=== PATIENT | female | born 1960 | race Caucasian/White ===

== ENCOUNTER → 2021-04-12 | Outpatient (CLI) | payer OTHER ==
[~2021-04-12] MED LIST: FLAX1CAP5 PO; LATA0.0015; LISI20TA35; PROBCAP17 PO; TIMO0.5S29; VITA500C24 PO; VITMTA PO
== END ==
LOC: M LABSMTC 09:57
PROVIDERS: ATTEND Anesthesiology
DX: Z01.812 Encounter for preprocedural laboratory examination (principal); Z20.822 Contact with and (suspected) exposure to COVID-19

== ENCOUNTER 2021-04-17 07:49 | Day surgery (SDC) | payer OTHER ==
[~2021-04-17] VITALS: Ht 152.4 cm; Wt 58.5 kg
[~2021-04-17 07:49] MED LIST changes: +NS 1,000 ML IV ONE
--- OUTSIDE RECORDS SUMMARY | 2021-04-17 07:53 | CCD ---
Author Author [facility] Organization [facility] Address Unknown Phone Unavailable Care Team Providers Care Double Cutter Name Role Phone Rosalva-Doris Mima Unavailable PROBLEMS Type Condition ICD9-CM Code DVD26-ZR Code Onset Dates Condition S tatus W/U Status Risk SNOMED Code Notes Problem Glaucoma, unspecified glaucoma type, unspecified lateralit y H40.9 Active confirmed 26896616 Problem Mixed hyperlipidemia E78.2 Active confirmed 483807577 Problem Essential hypertension I10 Active confirmed [id number] ALLERGIES Allergen (clinical drug ingredient) Drug/Non Drug Allergy do cumented on EMR Reaction Allergy Type Onset Date Status sulfamethoxazole / trimethoprim Bactrim([facility] Code:[address]-50) back pain Drug Allergy Active erythromycin Erythromycin(ND Code:[address]-25) Nausea/Vomiting D rug Allergy Active ENCOUNTERS from 1962 to 2021-02-06 Encounter Location Date Provider Diagnosis [address] [place] [address] Dec, Mima HoranTartell Mixed hyperlipidemia E78.2 IMMUNIZATIONS No Information SOCIAL HISTORY Tobacco Use: Social History Observation Description Date Details (start date - stop date) Never Smoker Sex Assigned At : Social History Observation Description Sex Assigned At Unknown Audit Question Answer Notes Total Score: 1 Interpretation: Alcohol Education Language: Question Answer Notes Languages spoken: Bulgarian Domestic Violence: Question Answer Notes Status: Sexual Hx: Question Answer Notes Had sex in the last 12 months (vaginal, oral, or anal)? Yes LMP: hyster Have you ever had an STD? No with Men only Use protection? No Drug and Alcohol Question Answer Notes Total Score: 0 Interpretation: No problems reported Alcohol Screening: Question Answer Notes Did you have a drink containing alcohol in the past year? Ye s Points 1 Interpretation Negative How often did you have six or more drinks on one occas ion in the past year? Never (0 points) How many drinks did you have on a typica l day when you were drinking in the past year? 1 or 2 (0 points) How often did you have a drink containing alcohol in t he past year? Monthly or less (1 point) Tobacco Use: Question Answer Notes Are you a: never smoker REASON FOR REFERRAL No Information VITAL SIGNS No information MEDICATIONS Medication SIG (Take, Route, Frequency, Duration) Notes Start Da te End Date Status Timolol Maleate 0.5 % 1 drop into affected eye Ophthalmic Once a day Active Lisinopril-hydroCHLOROthiazide 20-12.5 MG 1 tablet Ora lly Once a day for 90 days Active Latanoprost 0.005 % 1 drop into affected eye in the evening Ophthalmic Once a day Active Montelukast Sodium 10 MG 1 tablet as needed Orally Once a day Active PROCEDURES No Information RESULTS No Results REASON FOR VISIT blood lab MEDICAL (GENERAL) HISTORY Type Description Date Medical History essential hypertension Medical History glaucoma Medical History allergic rhinitis Medical History normal mammogram (10/2020) Surgical History tracheotomy for epiglottitis 1966 Surgical History 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 9 Surgical History tubal ligation 1994 Surgical History 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 Hospitalization History epiglottitis 1966 Hospitalization History knee surgery 1979 Hospitalization History delivery 1982 Hospitalization History delivery 1986 Hospitalization History delivery 1993 Hospitalization History hysterectomy and oophorectomy 2000 Goals Section No Information Health Concerns No Information MEDICAL EQUIPMENT No Information MENTAL STATUS No Information FUNCTIONAL STATUS No Information ASSESSMENTS Encounter Date Diagnosis Assessment Notes Treatment Notes Treatm ent Clinical Notes Dec, Mixed hyperlipidemia (ICD-10 - E78.2) PLAN OF TREATMENT Medication Medication Name Sig Start Date Stop Date Lisinopril-hydroCHLOROthiazide 20-12.5 MG 1 tablet Ora lly Once a day for 90 days Future Test Test Name Order Date LIPID PANEL (CARDIAC RISK) [id number] Next Appt Details Provider Name:Mima Roth, 2021-07-16 10:00:00 AM, [address] , , [place], [address], Insurance Providers Payer Name Payer Address Payer Phone Insured Name Patient Relati onship to Insured Coverage Start Date Coverage End Date [facility] [address] [place] [address] JAMIR ORDAZ self
--- OUTSIDE RECORDS SUMMARY | 2021-04-17 07:53 | CCD | Continuity of Care Document ---
Author Author Luis TRIANA Organization Unknown Address [address] [place] [address], [address] [place] [address] Phone [phone] Care Team Providers Care Cement Truck Driver Name Role Phone Mima Roth D.O. AUTM Problems Active Problems Provider Date Essential hypertension VERONIKA Gardner Onset: 01/23/2021 Social History Type Date Description Comments Sex Unknown ETOH Use Rarely consumes alcohol Tobacco Use Start: Unknown Denies Smoking Recreational Drug Use Denies Drug Use Allergies, Adverse Reactions, Alerts Active Allergies Criticality Reaction | Severity Comments Date Bactrim Unable to assess criticality Back Pain 01/23/2021 Erythromycin Unable to assess criticality Upset stomach 01/23/2021 Medications Active Medications SIG Qnty Indications Ordering Provide r Date Lisinopril-Hydrochlorothiazide 20-12.5mg Tablets one tab daily Unknown Latanoprost-Timolol Maleate 0.005-0.5% Solution once daily Unknown Vitamin C 1000mg Tablets 1 by mouth every day Unknown Flaxseed Oil 1200mg Capsules once daily Unknown Multivitamin Tablets 1 by mouth every day Unknown Probiotic Digestive Support Extra Streng th Capsules 1 by mouth every day Unknown 0 000 Immunizations Description No Information Available Vital Signs Date Vital Result Comment 01/23/2021 9:48am BP Systolic 158 mmHg BP Diastolic 86 mmHg Body Temperature 98.3 F Height 59.5 inches 4'11.50" Weight 135.00 lb BMI (Body Mass Index) 26.8 kg/m2 [place] Body Weight 100 lb Weight 61.236 kg BSA (Body Surface Area) 1.57 m2 Results Description No Information Available Procedures Description No Information Available Medical Devices Description No Information Available Encounters Description No Information Available Assessments Date Code Description Provider 01/23/2021 Z86.010 Personal history of colonic poly ps VERONIKA aGrdner 01/23/2021 Z12.11 Encounter for screening for leanna gnant neoplasm of colon VERONIKA Gardner Plan of Treatment No Information Available Functional Status Description No Information Available Mental Status Description No Information Available Referrals Refer to Dr Reason for Referral Status Appt Date Brandon Carmona M.D. COLONOSCOPY Scheduled 01/23/2021 [facility] [address] [place] [address] [phone]
--- OUTSIDE RECORDS SUMMARY | 2021-04-17 07:53 | CCD ---
Author Author [facility] Organization [facility] Address [address] [place], [place] [id number] Phone Care Team Providers Care Chef Teacher Name Role Phone DEREK REYES Unavailable [email or web address] Allergies, Adverse Reactions, Alerts Bactrim 06/11/2014 erythromycin 06/11/2014 Medications * Continue: * DEREK REYES RPA-C * lisinopriL 20 mg- hydrochlorothiazide 12.5 mg tablet , Take 1 tablet orally Every day 06/11/2014 * montelukast 10 mg tablet , Take 1 tablet orally Every day 02/16/2019 * Ventolin HFA 90 mcg/actuation aerosol inhaler , Take 2 hfa aerosol with adapter (gram) puff(s) 4 times a day prn 02/16/2019 * Discontinued: * CHAD BONILLA * Augmentin 875 mg-125 mg tablet 02/05/2016 * * albuterol sulfate HFA 90 mcg/actuation aerosol inhaler 03/30/2017 * Singulair 10 mg tablet 03/30/2017 * gabapentin 100 mg capsule 03/30/2017 * Valtrex 1 gram tablet 03/30/2017 * Pre-existing: * timoloL maleate 0.5 % eye drops , Take 1 EACH EYE drops ophthalmically Every day * Xalatan 0.005 % eye drops , Take 1 BOTH EYE drops ophthalmically Every day, EACH EYE Problems Addressed During This Encounter Hyperlipidemia, unspecified (E78.5) 07/18 Essential (primary) hypertension (I10) C omments: STABLE. CONTINUE WITH CURRENT TREATMENT PLAN. 07/18/2014 Encounter for screening for diabetes venkatesh litus (Z13.1) 02/05/2016 Encounter for screening mammogram for ma lignant neoplasm of breast (Z12.31) 02/05/2016 Encounter for screening for diseases of the blood and blood-forming organs and certain disorders involving the immune mechanism (Z13.0) 02/05/2016 Encounter for gynecological examination (general) (routine) without abnormal findings (Z01.419) 02/05/2016 Encounter for general adult medical exam ination without abnormal findings (Z00.00) Comments: WILL ORDER LABS. COLONOSCOPY UTD PER PATIENT. TDAP UTD. DECLINES FLU SHOT. MAMMOGRAM UTD. 02/05/2016 Mild intermittent asthma, uncomplicated (J45.20) Comments: PFT showing mild airway obstruction. This could be in correlation with allergic rhinitis. She felt improved after albuterol nebulizer today. I am going to send in aluterol inhaler and discussed 2 puffs QID PRN and side effect profile. If symptoms persist or worsen or if she finds she uses the inhaler 2 puffs QID every day, to notify office or go to ER 04/13/2016 Allergic rhinitis, unspecified (J30.9) C omments: STABLE. 04/13/2016 Encounter for screening for other suspec jessi endocrine disorder (Z13.29) 03/30/2017 Encounter for screening for malignant ne oplasm of colon (Z12.11) Comments: Colonoscopy UTD in 2012 per patient and 10 year recall. Rectal exam negative today. 04/04/2018 Anemia, unspecified (D64.9) Comments: RB C WAS .2 UNDER LOWER LIMIT OF NORMAL. WILL REPEAT CBC. 11/02/2018 Encounter for screening mammogram for ma lignant neoplasm of breast (Z12.31) 03/02/2019 Abnormal electrocardiogram [ECG] [EKG] ( R94.31) Comments: ASYMPTOMATIC. T WAVE INVERSION NOTED IN LEAD ONE. WILL ORDER STRESS ECHO. 12/05/2019 Encounter for immunization (Z23) 0 Resolved: GLAUCOMA UNSPECIFIED (365.9) 09/28/2017 BLOOD PRESSURE ELEVATED WITH HYPERTENSION (401.9) 09/28/2017 Acute sinusitis, unspecified (J01.90) 04/13/2016 Nonscarring hair loss, unspecified (L65.9) 09/28/2017 Chest pain, unspecified (R07.9) 09/28/2017 Zoster without complications (B02.9) 09/28/2017 Localized swelling, mass and lump, trunk (R22.2) 12/05/2019 Results WBC: 6 K/uL 06/11/2014 RBC: 4.56 M/uL 06/11/2014 Hemoglobin: 14.6 g/dL 06/11/2014 Hematocrit: 41.4 % 06/11/2014 MCV: 90.8 fL 06/11/2014 MCH: 32 pg 06/11/2014 MCHC: 35.3 g/dL 06/11/2014 RED CELL DISTRIBUTION WIDTH: 11.5 % 05/31 Platelet Count: 262 K/uL 06/11/2014 Mean Platelet Volume: 9.4 fL 06/11/2014 NEUTROPHILS AUTOMATED: 69.1 % 06/11/2014 LYMPHOCYTE AUTOMATED: 19.6 % 06/11/2014 MONOCYTES AUTOMATED: 6.5 % 06/11/2014 EOSINOPHILS AUTOMATED: 3.3 % 06/11/2014 BASOPHILS AUTOMATED: 1.3 % 06/11/2014 ABS.NEUTROPHILS AUTOMATED: 4.13 K/uL 04/2015 ABS. LYMPHOCYTES AUTOMATED: 1.17 K/uL ABS.MONOCYTES AUTOMATED: 0.39 K/uL 06/11 ABS. EOSINOPHILS AUTOMATED: 0.2 K/uL 04/2015 ABS. BASOPHILS AUTOMATED: 0.08 K/uL 05/31 IMMATURE GRANULOCYTE: 0.2 % 06/11/2014 ABS IMMATURE GRANULOCYTE: 0.01 K/uL 05/31 NUCLEATED RBC: 0 % 06/11/2014 TSH: 2.03 uIU/mL 06/11/2014 Sodium: 141 mmol/L 06/11/2014 Potassium: 4.3 mmol/L 06/11/2014 Chloride: 101 mmol/L 06/11/2014 CO2: 29 mmol/L 06/11/2014 Anion Gap: 15 mmol/L 06/11/2014 GLUCOSE: 96 mg/dL 06/11/2014 Creatinine: 0.7 mg/dL 06/11/2014 BUN: 15 mg/dL 06/11/2014 Calcium: 9.6 mg/dL 06/11/2014 Total Protein: 7.4 g/dL 06/11/2014 Albumin: 4.8 g/dL 06/11/2014 BILIRUBIN,TOTAL: 1 mg/dL 06/11/2014 Alkaline Phosphatase: 88 U/L 06/11/2014 AST: 15 U/L 06/11/2014 ALT: 12 U/L 06/11/2014 GFR: > 60 06/11/2014 Cholesterol: 207 mg/dL 06/11/2014 Triglycerides: 124 mg/dL 06/11/2014 HDL Cholesterol: 39 mg/dL 06/11/2014 LDL CHOLESTEROL (CALCULATED): 143 mg/dL 06/11/2014 WBC: 6 K/uL 12/31/2014 RBC: 4.3 M/uL 12/31/2014 Hemoglobin: 13.8 g/dL 12/31/2014 Hematocrit: 40.2 % 12/31/2014 MCV: 93.5 fL 12/31/2014 MCH: 32.1 pg 12/31/2014 MCHC: 34.3 g/dL 12/31/2014 RED CELL DISTRIBUTION WIDTH: 11.9 % 12/31 Platelet Count: 228 K/uL 12/31/2014 Mean Platelet Volume: 9.4 fL 12/31/2014 NEUTROPHILS AUTOMATED: 62.8 % 12/31/2014 LYMPHOCYTE AUTOMATED: 23.2 % 12/31/2014 MONOCYTES AUTOMATED: 6.9 % 12/31/2014 EOSINOPHILS AUTOMATED: 5.7 % 12/31/2014 BASOPHILS AUTOMATED: 1.2 % 12/31/2014 ABS.NEUTROPHILS AUTOMATED: 3.75 K/uL 12/31/2014 ABS. LYMPHOCYTES AUTOMATED: 1.38 K/uL ABS.MONOCYTES AUTOMATED: 0.41 K/uL 2014 ABS. EOSINOPHILS AUTOMATED: 0.34 K/uL ABS. BASOPHILS AUTOMATED: 0.07 K/uL 12/31 IMMATURE GRANULOCYTE: 0.2 % 12/31/2014 ABS IMMATURE GRANULOCYTE: 0.01 K/uL 12/31 NUCLEATED RBC: 0 % 12/31/2014 Sodium: 140 mmol/L 12/31/2014 Potassium: 4.5 mmol/L 12/31/2014 Chloride: 102 mmol/L 12/31/2014 CO2: 28 mmol/L 12/31/2014 Anion Gap: 15 mmol/L 12/31/2014 GLUCOSE: 99 mg/dL 12/31/2014 Creatinine: 0.8 mg/dL 12/31/2014 BUN: 21 mg/dL 12/31/2014 Calcium: 9.4 mg/dL 12/31/2014 Total Protein: 7.1 g/dL 12/31/2014 Albumin: 4.4 g/dL 12/31/2014 BILIRUBIN,TOTAL: 0.6 mg/dL 12/31/2014 Alkaline Phosphatase: 80 U/L 12/31/2014 AST: 17 U/L 12/31/2014 ALT: 21 U/L 12/31/2014 GFR: > 60 12/31/2014 Cholesterol: 217 mg/dL 12/31/2014 Triglycerides: 114 mg/dL 12/31/2014 HDL Cholesterol: 50 mg/dL 12/31/2014 LDL CHOLESTEROL (CALCULATED): 144 mg/dL 12/31/2014 TSH: 2.2 uIU/mL 08/14/2015 WBC: 6.9 K/uL 04/13/2017 RBC: 4.23 M/uL 04/13/2017 Hemoglobin: 13.3 g/dL 04/13/2017 Hematocrit: 38.5 % 04/13/2017 MCV: 91 fL 04/13/2017 MCH: 31.4 pg 04/13/2017 MCHC: 34.5 g/dL 04/13/2017 RED CELL DISTRIBUTION WIDTH: 11.9 % Platelet Count: 234 K/uL 04/13/2017 Mean Platelet Volume: 9.4 fL 04/13/2017 NEUTROPHILS AUTOMATED: 70.1 % 7 LYMPHOCYTE AUTOMATED: 19.4 % 04/13/2017 MONOCYTES AUTOMATED: 6.2 % 04/13/2017 EOSINOPHILS AUTOMATED: 3 % 04/13/2017 BASOPHILS AUTOMATED: 1 % 04/13/2017 ABS.NEUTROPHILS AUTOMATED: 4.85 K/uL ABS. LYMPHOCYTES AUTOMATED: 1.34 K/uL 1 06/13/2016 ABS.MONOCYTES AUTOMATED: 0.43 K/uL 03/31 ABS. EOSINOPHILS AUTOMATED: 0.21 K/uL 1 06/13/2016 ABS. BASOPHILS AUTOMATED: 0.07 K/uL IMMATURE GRANULOCYTE: 0.3 % 04/13/2017 ABS IMMATURE GRANULOCYTE: 0.02 K/uL NUCLEATED RBC: 0 % 04/13/2017 Cholesterol: 182 mg/dL 04/13/2017 Triglycerides: 115 mg/dL 04/13/2017 HDL Cholesterol: 37 mg/dL 04/13/2017 LDL CHOLESTEROL (CALCULATED): 122 mg/dL 04/13/2017 TSH: 1.29 uIU/mL 04/13/2017 Sodium: 143 mmol/L 04/13/2017 Potassium: 4.1 mmol/L 04/13/2017 Chloride: 105 mmol/L 04/13/2017 CO2: 28 mmol/L 04/13/2017 Anion Gap: 14 mmol/L 04/13/2017 GLUCOSE: 94 mg/dL 04/13/2017 Creatinine: 0.7 mg/dL 04/13/2017 BUN: 17 mg/dL 04/13/2017 Calcium: 9.4 mg/dL 04/13/2017 Total Protein: 6.7 g/dL 04/13/2017 Albumin: 4.1 g/dL 04/13/2017 BILIRUBIN,TOTAL: 0.6 mg/dL 04/13/2017 Alkaline Phosphatase: 83 U/L 04/13/2017 AST: 14 U/L 04/13/2017 ALT: 14 U/L 04/13/2017 GFR: > 60 04/13/2017 WBC: 5.7 K/uL 04/06/2018 RBC: 4.18 M/uL 04/06/2018 Hemoglobin: 13.4 g/dL 04/06/2018 Hematocrit: 38.5 % 04/06/2018 MCV: 92.1 fL 04/06/2018 MCH: 32.1 pg 04/06/2018 MCHC: 34.8 g/dL 04/06/2018 RED CELL DISTRIBUTION WIDTH: 11.6 % 04/06/2018 Platelet Count: 249 K/uL 04/06/2018 Mean Platelet Volume: 9.3 fL 04/06/2018 NEUTROPHILS AUTOMATED: 66.7 % 04/06/2018 LYMPHOCYTE AUTOMATED: 22.2 % 04/06/2018 MONOCYTES AUTOMATED: 6.1 % 04/06/2018 EOSINOPHILS AUTOMATED: 3.7 % 04/06/2018 BASOPHILS AUTOMATED: 0.9 % 04/06/2018 ABS.NEUTROPHILS AUTOMATED: 3.81 K/uL ABS. LYMPHOCYTES AUTOMATED: 1.27 K/uL 1 06/06/2017 ABS.MONOCYTES AUTOMATED: 0.35 K/uL 04/06 ABS. EOSINOPHILS AUTOMATED: 0.21 K/uL 1 06/06/2017 ABS. BASOPHILS AUTOMATED: 0.05 K/uL 04/06/2018 IMMATURE GRANULOCYTE: 0.4 % 04/06/2018 ABS IMMATURE GRANULOCYTE: 0.02 K/uL 04/06/2018 NUCLEATED RBC: 0 % 04/06/2018 Sodium: 142 mmol/L 04/06/2018 Potassium: 4.5 mmol/L 04/06/2018 Chloride: 104 mmol/L 04/06/2018 CO2: 28 mmol/L 04/06/2018 Anion Gap: 15 mmol/L 04/06/2018 GLUCOSE: 103 mg/dL 04/06/2018 Creatinine: 0.8 mg/dL 04/06/2018 BUN: 20 mg/dL 04/06/2018 Calcium: 9.3 mg/dL 04/06/2018 Total Protein: 6.7 g/dL 04/06/2018 Albumin: 4.2 g/dL 04/06/2018 BILIRUBIN,TOTAL: 0.5 mg/dL 04/06/2018 Alkaline Phosphatase: 72 U/L 04/06/2018 AST: 15 U/L 04/06/2018 ALT: 12 U/L 04/06/2018 GFR: > 60 04/06/2018 TSH: 1.26 uIU/mL 04/06/2018 Cholesterol: 179 mg/dL 04/06/2018 Triglycerides: 104 mg/dL 04/06/2018 HDL Cholesterol: 42 mg/dL 04/06/2018 LDL CHOLESTEROL (CALCULATED): 116 mg/dL 04/06/2018 WBC: 6.2 K/uL 11/02/2018 RBC: 4.26 M/uL 11/02/2018 Hemoglobin: 13.2 g/dL 11/02/2018 Hematocrit: 39.1 % 11/02/2018 MCV: 91.8 fL 11/02/2018 MCH: 31 pg 11/02/2018 MCHC: 33.8 g/dL 11/02/2018 RED CELL DISTRIBUTION WIDTH: 11.5 % 11/02 Platelet Count: 254 K/uL 11/02/2018 Mean Platelet Volume: 9.3 fL 11/02/2018 NEUTROPHILS AUTOMATED: 63.3 % 11/02/2018 LYMPHOCYTE AUTOMATED: 26.1 % 11/02/2018 MONOCYTES AUTOMATED: 5.8 % 11/02/2018 EOSINOPHILS AUTOMATED: 3.6 % 11/02/2018 BASOPHILS AUTOMATED: 1 % 11/02/2018 ABS.NEUTROPHILS AUTOMATED: 3.92 K/uL 11/02/2018 ABS. LYMPHOCYTES AUTOMATED: 1.61 K/uL ABS.MONOCYTES AUTOMATED: 0.36 K/uL 2018 ABS. EOSINOPHILS AUTOMATED: 0.22 K/uL ABS. BASOPHILS AUTOMATED: 0.06 K/uL 11/02 IMMATURE GRANULOCYTE: 0.2 % 11/02/2018 ABS IMMATURE GRANULOCYTE: 0.01 K/uL 11/02 NUCLEATED RBC: 0 % 11/02/2018 WBC: 5.6 K/uL 12/29/2019 RBC: 4.14 M/uL 12/29/2019 Hemoglobin: 13.1 g/dL 12/29/2019 Hematocrit: 38.9 % 12/29/2019 MCV: 94 fL 12/29/2019 MCH: 31.6 pg 12/29/2019 MCHC: 33.7 g/dL 12/29/2019 RED CELL DISTRIBUTION WIDTH: 11.7 % 11/30 Platelet Count: 219 K/uL 12/29/2019 Mean Platelet Volume: 9.2 fL 12/29/2019 NEUTROPHILS AUTOMATED: 64.7 % 12/29/2019 LYMPHOCYTE AUTOMATED: 22.8 % 12/29/2019 MONOCYTES AUTOMATED: 6.5 % 12/29/2019 EOSINOPHILS AUTOMATED: 4.5 % 12/29/2019 BASOPHILS AUTOMATED: 1.1 % 12/29/2019 ABS.NEUTROPHILS AUTOMATED: 3.6 K/uL 11/30 ABS. LYMPHOCYTES AUTOMATED: 1.27 K/uL ABS.MONOCYTES AUTOMATED: 0.36 K/uL 12/28 ABS. EOSINOPHILS AUTOMATED: 0.25 K/uL ABS. BASOPHILS AUTOMATED: 0.06 K/uL 11/30 IMMATURE GRANULOCYTE: 0.4 % 12/29/2019 ABS IMMATURE GRANULOCYTE: 0.02 K/uL 11/30 NUCLEATED RBC: 0 % 12/29/2019 Cholesterol: 201 mg/dL 12/29/2019 Triglycerides: 121 mg/dL 12/29/2019 HDL Cholesterol: 41 mg/dL 12/29/2019 LDL CHOLESTEROL (CALCULATED): 136 mg/dL 12/29/2019 Sodium: 140 mmol/L 12/29/2019 Potassium: 4.4 mmol/L 12/29/2019 Chloride: 103 mmol/L 12/29/2019 CO2: 28 mmol/L 12/29/2019 Anion Gap: 13 mmol/L 12/29/2019 GLUCOSE: 98 mg/dL 12/29/2019 Creatinine: 0.8 mg/dL 12/29/2019 BUN: 19 mg/dL 12/29/2019 Calcium: 9.7 mg/dL 12/29/2019 Total Protein: 7 g/dL 12/29/2019 Albumin: 4.3 g/dL 12/29/2019 BILIRUBIN,TOTAL: 0.7 mg/dL 12/29/2019 Alkaline Phosphatase: 71 U/L 12/29/2019 AST: 15 U/L 12/29/2019 ALT: 11 U/L 12/29/2019 GFR: > 60 12/29/2019 TSH: 2.53 uIU/mL 12/29/2019 OCCULT BLOOD (DAY1): NEGATIVE 01/05/2020 OCCULT BLOOD (DAY2): NOT TESTED 0 OCCULT BLOOD (DAY3): NOT TESTED 0 Cholesterol: 206 mg/dL 05/13/2020 Triglycerides: 184 mg/dL 05/13/2020 HDL Cholesterol: 41 mg/dL 05/13/2020 LDL CHOLESTEROL (CALCULATED): 128 mg/dL 05/13/2020 Chief Complaint/Reason for Visit PT C/O LUMP UNDER LEFT AXILLA AREA PT IS HERE FOR A 6 MONTH FOLLOW UP ANNUAL EXAM FOLLOW UP Patient is here today for her annual exa m. Patient is here today complaining of a r jennifer on back. Patient is here today for an Emergency R oom follow up. She was at [facility] yesterday for chestpain and nausea. Patient is here today with c/o chest con gestion, cough, SOB, wheezing for the past the 1.5 months. Procedures Performed and Ordered Today * Documentation of Complete Medication Information 06/11/2014 * Documentation of Complete Medication Information 07/18/2014 * Documentation of Complete Medication Information 01/14/2015 * Documentation of Complete Medication Information 08/14/2015 * Documentation of Complete Medication Information 02/05/2016 * Documentation of Complete Medication Information 04/13/2016 * Documentation of Complete Medication Information 03/30/2017 * Medications Documented in the Medical Record 03/30/2017 * Current tobacco non-user 03/30/2017 * Mammography 07/10/2019 * * Lab: CBC with differential 06/11/2014 Comprehen Metabolic Panel 06/11/2014 TSH 06/11/2014 Lipid Profile 06/11/2014 Comprehen Metabolic Panel 07/18/2014 Lipid Profile 07/18/2014 CBC with differential 07/18/2014 Basic Metabolic Panel 01/14/2015 Lipid Panel 01/14/2015 TSH 08/14/2015 Lipid Profile FASTING 8-10 HOURS 02/05/2016 CBC with differential 02/05/2016 Comprehen Metabolic Panel 02/05/2016 CBC with differential 03/30/2017 Comprehen Metabolic Panel 03/30/2017 Lipid Profile 03/30/2017 TSH 03/30/2017 BLOOD OCCULT 1-3 DETERMINATIONS neg 04/04/2018 CBC with differential 04/04/2018 Comprehen Metabolic Panel 04/04/2018 Lipid Profile 04/04/2018 TSH 04/04/2018 CBC with differential 11/02/2018 CBC with differential 12/05/2019 Comprehen Metabolic Panel 12/05/2019 Lipid Profile 12/05/2019 TSH 12/05/2019 Lab STOOL FOR OCCULT BLOOD X3 12/05/2019 Lipid Panel 02/28/2020 Test: PFT PRE/POST EVALUATION asthma 04/13/2016 Stress Echo, Complete 08/07/2016 Stress Echo, Complete 12/05/2019 Imaging: EKG 12 LEADS WITH INTERPRETATION AND REPORT 06/11/2014 TOMOSYNTHESIS SCREENING BILATERAL 02/05/2016 TOMOSYNTHESIS SCREENING BILATERAL 03/30/2017 MAMMOGRAM SCREENING 03/30/2017 EKG 12 LEADS WITH INTERPRETATION AND REPORT NSR NORMAL AXIS NO ACUTE ST T CHANGES 04/04/2018 TOMOSYNTHESIS SCREENING BILATERAL 04/04/2018 Image LEFT BREAST AND AXILLARY U/S 02/27/2019 MAMMOGRAM SCREENING BILATERAL 03/02/2019 EKG 12 LEADS WITH INTERPRETATION AND REPORT 04/04/2018 Immunization : TDAP TETANUS DIPHTHERIA ACELLULAR PERTUSSIS 12/05/2019 Vital signs Body Temperature: Heart Rate: Respiratory Rate: BP: Height: Weight: BMI: O2 Percentage dC Oximetry : Inhaled Oxygen Concentration: 98.5F 12/05/2019 65 beats per minute 0 14 breaths per minute 12/05/2019 136/88 mmHg 12/05/2019 5ft, 1in 12/05/2019 134lbs, 4oz 12/05/19 20 25.364 12/05/2019 99% 12/05/2019 21% 12/05/2019 Immunizations TDAP TETANUS DIPHTHERIA ACELLULAR PERTUSSIS 12/05/2019 Social History Smoking Status: Never smoker. 12/05/2019 Reason for Referral Functional Status Plan of Treatment Procedures Scheduled: Basic Metabolic Panel 01/14/2015 Lipid Panel 01/14/2015 CBC with differential 02/05/2016 Comprehen Metabolic Panel 02/05/2016 TOMOSYNTHESIS SCREENING BILATERAL 04/04/2018 Image 02/27/2019 MAMMOGRAM SCREENING BILATERAL 03/02/2019 CBC with differential 12/05/2019 Comprehen Metabolic Panel 12/05/2019 Lipid Profile 12/05/2019 TSH 12/05/2019 Lab 12/05/2019 Stress Echo, Complete 12/05/2019 Lipid Panel 02/28/2020 Appointments Schedul ed: Wednesday, June 11, 2014, 8:00 AM, DEREK HUYSMAN PA Friday, July 18, 2014, 9:00 AM, DEREK HUYSMAN PA Wednesday, January 14, 2015, 9:00 AM, DEREK HUYSMAN PA Friday, August 14, 2015, 9:15 AM, DEREK HUYSMAN PA Friday, August 28, 2015, 10:30 AM, DEREK HUYSMAN PA Friday, February 05, 2016, 10:00 AM, DEREK HUYSMAN PA Wednesday, April 13, 2016, 10:00 AM, DEREK HUYSMAN PA Sunday, August 07, 2016, 10:15 AM, DEREK HUYSMAN PA Wednesday, November 09, 2016, 3:45 PM, DEREK HUYSMAN PA Thursday, March 30, 2017, 1:30 PM, DEREK HUYSMAN PA Thursday, September 28, 2017, 1:30 PM, DEREK HUYSMAN PA Wednesday, April 04, 2018, 2:00 PM, DEREK HUYSMAN PA Friday, November 02, 2018, 11:00 AM, DEREK HUYSMAN PA Wednesday, February 27, 2019, 1:30 PM, DEREK HUYSMAN PA Thursday, December 05, 2019, 2:00 PM, DEREK HUYSMAN PA Wednesday, May 27, 2020, 11:45 AM, DEREK HUYSMAN PA Payers Insurance Policy Type Po licy ID Relation Subscriber Expi ration [employer] Blue [employer]/Shield [id number] Self MARILE E RAYOME Encounters ROUTINE PHYSICAL EST ABLISHED PATIENT AGE 40-64 12/05/2019 Diagnoses Encounter for general adult medical examination without abnormal findings ESTABLISHED PATIENT OFFICE VISIT 02/27/2019 ESTABLISHED PATIENT OFFICE VISIT 11/02/2018 ROUTINE PHYSICAL EST ABLISHED PATIENT AGE 40-64 04/04/2018 ESTABLISHED PATIENT OFFICE VISIT 09/28/2017 ROUTINE PHYSICAL EST ABLISHED PATIENT AGE 40-64 03/30/2017 ESTABLISHED PATIENT OFFICE VISIT 11/09/2016 ESTABLISHED PATIENT OFFICE VISIT 08/07/2016 ESTABLISHED PATIENT OFFICE VISIT 04/13/2016 ROUTINE PHYSICAL EST ABLISHED PATIENT AGE 40-64 02/05/2016 ESTABLISHED PATIENT OFFICE VISIT 08/14/2015 ESTABLISHED PATIENT OFFICE VISIT 01/14/2015 ESTABLISHED PATIENT OFFICE VISIT 07/18/2014 NEW PATIENT OFFICE
--- OUTSIDE RECORDS SUMMARY | 2021-04-17 07:53 | CCD ---
Author Author [facility] Organization [facility] Address Unknown Phone Unavailable Care Team Providers Care Income Tax Expert Name Role Phone Huysman PA, PA D Anu PA Unavailable Unavailable Huysman PA, PA D Anu PA Unavailable Unavailable Huysman PA, PA D Anu PA Unavailable Unavailable Huysman PA, PA D Anu PA Unavailable Unavailable Huysman PA, PA D Anu PA Unavailable Unavailable Huysman PA, PA D Anu PA Unavailable Unavailable Huysman PA, PA D Anu PA Unavailable Unavailable Hector, L Judy RPA Unavailable Unavailable Hector, L Judy RPA Unavailable Unavailable Hector, L Judy RPA Unavailable Unavailable Hector, L Judy RPA Unavailable Unavailable Hector, L Judy RPA Unavailable Unavailable Hector, L Judy RPA Unavailable Unavailable Hector, L Judy RPA Unavailable Unavailable Hector, L Judy RPA Unavailable Unavailable Hector, L Judy RPA Unavailable Unavailable Hector, L Judy RPA Unavailable Unavailable Hector, L Judy RPA Unavailable Unavailable Hector, L Judy RPA Unavailable Unavailable Hector, L Judy RPA Unavailable Unavailable Hector, L Judy RPA Unavailable Unavailable Hector, L Judy RPA Unavailable Unavailable Hector, L Judy RPA Unavailable Unavailable Hector, L Judy RPA Unavailable Unavailable Hector, L Judy RPA Unavailable Unavailable Hector, L Judy RPA Unavailable Unavailable Hector, L Judy RPA Unavailable Unavailable Hector, L Judy RPA Unavailable Unavailable Hector, L Judy RPA Unavailable Unavailable Hector, L Judy RPA Unavailable Unavailable Hector, L Judy RPA Unavailable Unavailable Hector, L Judy RPA Unavailable Unavailable Hector, L Judy RPA Unavailable Unavailable Hector, L Judy RPA Unavailable Unavailable Hector, L Judy RPA Unavailable Unavailable Hector, L Judy RPA Unavailable Unavailable Hector, L Judy RPA Unavailable Unavailable Hector, L Judy RPA Unavailable Unavailable Hector, L Judy RPA Unavailable Unavailable Rosalva-Tartell, M Mima DO Unavailable Unavailabl e Rosalva-Tartell, M Mima DO Unavailable Unavailabl e Rosalva-Tartell, M Mima DO Unavailable Unavailabl e Rosalva-Tartell, M Mima DO Unavailable Unavailabl e Rosalva-Tartell, M Mima DO Unavailable Unavailabl e Rosalva-Tartell, M Mima DO Unavailable Unavailabl e Rosalva-Tartell, M Mima DO Unavailable Unavailabl e Rosalva-Tartell, M Mima DO Unavailable Unavailabl e Rosalva-Tartell, M Mima DO Unavailable Unavailabl e Rosalva-Tartell, M Mima DO Unavailable Unavailabl e Rosalva-Tartell, M Mima DO Unavailable Unavailabl e Rosalva-Tartell, M Mima DO Unavailable Unavailabl e Rosalva-Tartell, M Mima DO Unavailable Unavailabl e Rosalva-Tartell, M Mima DO Unavailable Unavailabl e Rosalva-Tartell, M Mima DO Unavailable Unavailabl e Rosalva-Tartell, M Mima DO Unavailable Unavailabl e Rosalva-Tartell, M Mima DO Unavailable Unavailabl e Rosalva-Tartell, M Mima DO Unavailable Unavailabl e Rosalva-Tartell, M Mima DO Unavailable Unavailabl e Rosalva-Tartell, M Mima DO Unavailable Unavailabl e Rosalva-Tartell, M Mima DO Unavailable Unavailabl e Rosalva-Tartell, M Mima DO Unavailable Unavailabl e Rosalva-Tartell, M Mima DO Unavailable Unavailabl e Rosalva-Tartell, M Mima DO Unavailable Unavailabl e Rosalva-Tartell, M Mima DO Unavailable Unavailabl e Rosalva-Tartell, M Mima DO Unavailable Unavailabl e Rosalva-Tartell, M Mima DO Unavailable Unavailabl e Rosalva-Tartell, M Mima DO Unavailable Unavailabl e Rosalva-Tartell, M Mima DO Unavailable Unavailabl e Rosalva-Tartell, M Mima DO Unavailable Unavailabl e Rosalva-Tartell, M Mima DO Unavailable Unavailabl e Rosalva-Tartell, M Mima DO Unavailable Unavailabl e Rosalva-Tartell, M Mima DO Unavailable Unavailabl e Rosalva-Tartell, M Mima DO Unavailable Unavailabl e Rosalva-Tartell, M Mima DO Unavailable Unavailabl e Rosalva-Tartell, M Mima DO Unavailable Unavailabl e Rosalva-Tartell, M Mima DO Unavailable Unavailabl e Rosalva-Tartell, M Mima DO Unavailable Unavailabl e Rosalva-Tartell, M Mima DO Unavailable Unavailabl e Rosalva-Tartell, M Mima DO Unavailable Unavailabl e Rosalva-Tartell, M Mima DO Unavailable Unavailabl e Rosalva-Tartell, M Mima DO Unavailable Unavailabl e Rosalva-Tartell, M Mima DO Unavailable Unavailabl e Rosalva-Tartell, M Mmia DO Unavailable Unavailabl e Rosalva-Tartell, M Mima DO Unavailable Unavailabl e Rosalva-Tartell, M Mima DO Unavailable Unavailabl e Rosalva-Tartell, M Mima DO Unavailable Unavailabl e Rosalva-Tartell, M Mima DO Unavailable Unavailabl e Rosalva-Tartell, M Mima DO Unavailable Unavailabl e Rosalva-Tartell, M Mima DO Unavailable Unavailabl e Rosalva-Tartell, M Mima DO Unavailable Unavailabl e Rosalva-Tartell, M Mima DO Unavailable Unavailabl e Rosalva-Tartell, M Mima DO Unavailable Unavailabl e Rosalva-Tartell, M Mima DO Unavailable Unavailabl e Re-disclosure Warning The records that you are about to access may contain information from federally-assisted alcohol or drug abuse programs. If such information is present, then the following federally mandated warning applies: This information has been disclosed to you from records protected by federal confidentiality rules (42 CFR part 2). The federal rules prohibit you from making any further disclosure of this information unless further disclosure is expressly permitted by the written consent of the person to whom it pertains or as otherwise permitted by 42 CFR part 2. A general authorization for the release of medical or other information is NOT sufficient for this purpose. The Federal rules restrict any use of the information to criminally investigate or prosecute any alcohol or drug abuse patient.The records that you are about to access may contain highly sensitive health information, the redisclosure of which is protected by Article 27-F of the [facility] Public Health law. If you continue you may have access to information: Regarding HIV / AIDS; Provided by facilities licensed or operated by the [facility] Office of Mental Health; or Provided by the [facility] Office for People With Developmental Disabilities. If such information is present, then the following [facility] mandated warning applies: This information has been disclosed to you from confidential records which are protected by state law. State law prohibits you from making any further disclosure of this information without the specific written consent of the person to whom it pertains, or as otherwise permitted by law. Any unauthorized further disclosure in violation of state law may result in a fine or senior living sentence or both. A general authorization for the release of medical or other information is NOT sufficient authorization for further disc losure. Encounters Encounter Providers Location Date Indications Data Source(s ) Unknown [address] [facility] [address] [address] 01/27/2021 12:00:00 AM EDT eCW1 ([facility]) Outpatient Attender: Judy Jiménez/Elliot/Kat beckford 01/23/2021 09:45:00 AM EDT MEDENT ([facility]) Unknown [address] [facility] [address] [address] 01/13/2021 12:00:00 AM EDT eCW1 ([facility]) Unknown [address] [facility] [address] [address] 01/13/2021 12:00:00 AM EDT eCW1 ([facility]) Unknown [address] [facility] [address] [address] 01/13/2021 12:00:00 AM EDT eCW1 ([facility]) Outpatient [address] [facility] [address] [address] 01/10/2021 12:00:00 AM EDT eCW1 ([facility]) Outpatient Attender: Mima connor DOAdmitter: Mima Roth DO 01/06/2021 09:12:00 AM EDT - 01/06/2021 09:13:00 AM EDT Z00.00 [facility] Z00.00 Patient discharged. [place] [address] [facility] [place] [address] 10/30/2020 12:00:00 AM EDT eCW1 ([facility]) Outpatient Referrer: Mima Roth DO 10/22/2020 01:00:13 PM EDT [facility] [address] [facility] [place] [address] 10/02/2020 12:00:00 AM EDT eCW1 ([facility]) Unknown [address] [facility] [place] [address] 10/02/2020 12:00:00 AM EDT eCW1 ([facility]) Outpatient Attender: VERONIKA Martínez PAAdmitter: VERONIKA BANDA 05/13/2020 09:41:00 AM EST - 05/13/2020 09:42:00 AM EST E78.5 [facility] E78.5 Patient discharged. Outpatient Attender: VERONIKA Martínez PAAdmitter: VERONIKA BANDA 12/29/2019 09:19:00 AM EDT - 12/29/2019 09:20:00 AM EDT Z13.0,Z13.1,E78.5,Z13.29 [facility] Z13.0,Z13.1,E78.5,Z13.29 Patient discharged. Medications No Information Insurance Providers Payer name Policy type / Coverage type Policy ID Covered green party ID Covered green party's relationship to huerta Policy [place] Plan Information [place] [id number] SPOUSE [id number] COMMERCIAL GENERIC [id number] SPOUSE [id number] [place] [id number] SPOUSE [id number] BLUE CROSS OF [facility] [id number] SP [id number] BCBS GENERIC C [id number] Spouse [id number] EXCELLUS BLUE CROSS BLUE [place] [id number] Bl ue Cross/Shield [id number] BC BS OF [place] [id number] SP [id number] EXCELLUS BLUE CROSS BLUE SHIELD [id number] Bl ue Cross/Shield [id number] BLUE CROSS/OTHER [id number] H [id number] EXCELLUS BLUE CROSS BLUE SHIELD [id number] Bl ue Cross/Shield [id number] BLUE CROSS/OTHER [id number] H [id number] BLUE CROSS/OTHER [id number] H [id number] EXCELLUS BLUE CROSS BLUE SHIELD [id number] Bl ue Cross/Shield [id number] ID IDENTIFICATION [id number] Other Insurance [id number] [employer] [id number] Blue Cross/Ursula eld [id number] EXCELLUS BLUE CROSS BLUE SHIELD [id number] Bl ue Cross/Shield [id number] [place]AST HUMANA [id number] SELF PAY UNAVAILABLE SP UNAVAILA BLE EXCELLUS BLUE CROSS BLUE SHIELD [id number] Bl ue Cross/Shield [id number] FOR LIFE [id number] SP [id number] SELFPAY P ANTHEM BCBS [id number] SP [id number] Problems, Conditions, and Diagnoses Code Display Name Description Problem Type Effective Dates Data Source(s) Z00.00 Encounter for general adult medical examination without abnormal findings ENCNTR FOR GENERAL ADULT MEDICAL EXAM W/O ABNORMAL FINDINGS Diagnosis 01/06/2021 09:12:00 AM EDT [facility] E78.5 Hyperlipidemia, unspecified HYPERLIPIDEMIA, UNSPECIFIE D Diagnosis 05/13/2020 09:41:00 AM EST [facility] E78.2 [id number] Mixed hyperlipidemia Problem 02/05/2021 12:0 0:00 AM EDT eCW1 ([facility]) [id number] Essential hypertension Essential hypertension Problem 01/23/2021 12:00:00 AM EDT MEDENT ([facility] ) H40.9 [id number] Glaucoma, unspecified glaucoma t ype, unspecified laterality Problem 11/11/2020 12:00:00 AM EDT eCW1 ([facility]) I10 [id number] Essential hypertension Problem 10/02/2020 12 :00:00 AM EDT eCW1 ([facility]) Surgeries/Procedures Procedure Description Date Indications Data Source(s) OFFICE OUTPATIENT NEW 30 MINUTES 01/23/2021 12:00:00 A M EDT MEDENT ([facility] ) Results ID Date Data Source [id number] 01/06/2021 11:59:00 AM EDT [facility] Name Value Range Interpretation Code Description Data Ene rce(s) Supporting Document(s) WBC 5.9 k/UL 4.3-11.0 [facility] RBC 4.45 M/UL 4.20-5.40 Formerly named [facility] nter HEMOGLOBIN 14.2 G/DL 12.0-16.0 [facility] enter HEMATOCRIT 40.8 % 38.0-47.0 [facility] enter MCV 91.7 FL 75.0-105.0 [facility] enter MCH 31.9 PG 26.0-33.0 [facility] MCHC 34.8 G/DL 31.0-36.0 [facility] nter RED CELL DISTRIBUTION WIDTH 11.4 % 11.6-14.6 [facility] PLATELET COUNT 220 K/UL 150-400 [facility] MEAN PLATELET VOLUME 9.6 FL 8.7-12.3 [facility] NEUTROPHILS AUTOMATED 64.4 % 47.0-76.0 [facility] LYMPHOCYTE AUTOMATED 24.6 % 12.0-44.0 [facility] MONOCYTES AUTOMATED 6.1 % 2.0-12.0 [facility] EOSINOPHILS AUTOMATED 3.4 % 0.0-6.0 [facility] BASOPHILS AUTOMATED 1.0 % 0.0-3.0 [facility] ABS.NEUTROPHILS AUTOMATED 3.82 K/UL 1.50-7.50 [facility] ABS. LYMPHOCYTES AUTOMATED 1.46 K/UL 0.80-2.80 [facility] ABS.MONOCYTES AUTOMATED 0.36 K/UL 0.20-1.00 [facility] ABS. EOSINOPHILS AUTOMATED 0.20 K/UL 0.20-0.40 [facility] ABS. BASOPHILS AUTOMATED 0.06 K/UL 0.00-0.20 [facility] IMMATURE GRANULOCYTE 0.5 % 0.0-0.6 [facility] ABS IMMATURE GRANULOCYTE 0.03 K/UL 0.00-0.04 [facility] NUCLEATED RBC 0.0 % 0.0-0.0 [facility] ID Date Data Source [id number] 01/06/2021 01:03:00 PM EDT [facility] Name Value Range Interpretation Code Description Data Ene rce(s) Supporting Document(s) SODIUM 137 mmol/L 137-145 [facility] enter POTASSIUM 4.4 mmol/L 3.5-5.1 [facility] enter CHLORIDE 103 mmol/L 98-107 [facility] enter CO2 28 mmol/L 22-30 [facility] named [facility] nter ANION GAP 10 mmol/L 10-20 [facility] named [facility] nter GLUCOSE 103 mg/dL 74-106 [facility] named [facility] nter CREATININE 0.9 mg/dL 0.52-1.04 [facility] enter BUN 21 mg/dL 7-17 H [facility] named [facility] nter CALCIUM 9.8 MG/DL 8.4-10.2 [facility] named [facility] nter TOTAL PROTEIN 7.5 g/dL 6.3-8.2 [facility] ALBUMIN 4.5 g/dL 3.5-5.0 [facility] named [facility] nter BILIRUBIN,TOTAL 0.7 mg/dL 0.2-1.3 [facility] [place] ALKALINE PHOSPHATASE 75 U/L 38-126 [facility] AST 28 U/L 14-36 [facility] ALT 19 U/L <35 [facility] nter HEMOLYSIS <15 [facility] named [facility] nter ID Date Data Source [id number] 01/06/2021 01:03:00 PM EDT [facility] Name Value Range Interpretation Code Description Data Ene rce(s) Supporting Document(s) CHOLESTEROL 197 mg/dL <200 [facility] Adult Reference Ranges: Desirable Cho lesterol less than 200 mg/dL Borderline High Cholesterol 200 - 239 mg/dL High Cholesterol greater than 240 mg/dL TRIGLYCERIDES 156 mg/dL <150 H [facility] Adult Reference Ranges: Desirable Tri glyceride less than 150 mg/dL Borderline High Triglyceride 150 -199 mg/dL High Triglyceride > 200 mg/dL Very High Triglyceride >=500 mg/dL HDL CHOLESTEROL 38 mg/dL [facility] Adult Reference Ranges: Low HDL (major risk factor for CHD) < 40 mg/dL High HDL ("negative" risk factor for CHD) > 60 mg/dL LDL CHOLESTEROL (CALCULATED) 128 mg/dL <100 [facility] Adult Reference Ranges: Optimal LDL C holesterol < 100 mg/dL Near Optimal/above LDL Cholesterol 100 - 129 mg/dL Borderline High LDL Cholesterol 130 - 150 mg/dL High LDL Cholesterol 160 - 189 mg/dL Very High LDL Cholesterol >189 mg/dL ID Date Data Source [id number] 10/31/2020 11:20:00 AM EDT [facility] DIGI CASEY MAMMOGRAM SCREEN BL W CAD W TOMOSYNTHESISCLINICAL HISTORY: Screening. Last Clinical Breast Exam:2020 [employer] [place] Model 10-year risk: 1.3% (Average: 3.5%) Lifetime risk: 3.6% (Average: 9.5%).COMPARISON: 02/2019, 03/2017TECHNIQUE: Craniocaudal and oblique views were obtained digitally. Craniocaudal views were reviewed by CAD. Digital Breast Tomosynthesis was obtained.FINDINGS: There are scattered fibroglandular densities.No dominant mass, suspicious microcalcifications, architectural distortion or skin/nipple thickening or retraction is seen.There are no significant changes compared to the prior study/studies.IMPRESSION: Negative mammogram with Digital Breast Tomosynthesis.A follow up mammogram is recommended in one year as per the [employer].ACR Breast Density: B- Scattered fibroglandular densityCLASSIFICATION: BI-RADS 1 - NEGATIVEResultCode: BR 1 BDISCLAIMER: According to the [employer] and the [employer], any patient with a lifetime risk assessment greater than 20% or patients with dense breasts (heterogeneously or extremely dense), may benefit from additional screening tests for breast cancer. Further screening tests for patients with dense breasts (heterogeneously or extremely dense) should be based upon the patient's breast cancer risk status. All patients, having their mammogram with [facility], with a lifetime risk assessment greater than 20% or with dense breasts, will be given the opportunity to meet with our certified breast health navigator to discuss their risk and further imaging options.Further screening test includes Ultrasound and MR (Magnetic Resonance) imaging.Dictated by: MITALI BROWN M.D. on 1 Transcribed by: susy on 10/31/2020 02:47 PMCDS G code: , ,CDS Modifier: , ,cc: Name Value Range Interpretation Code Description Data Ene rce(s) Supporting Document(s) ID Date Data Source [id number] 05/13/2020 05:23:00 PM EST [facility] Name Value Range Interpretation Code Description Data Ene rce(s) Supporting Document(s) CHOLESTEROL 206 MG/DL [facility] Adult Reference Ranges: Desirable Cho lesterol less than 200 mg/dL Borderline High Cholesterol 200 - 239 mg/dL High Cholesterol greater than 240 mg/dL TRIGLYCERIDES 184 MG/DL H [facility] [place] HDL CHOLESTEROL 41 MG/DL [facility] Adult Reference Ranges: Low HDL (major risk factor for CHD) < 40 mg/dL High HDL ("negative" risk factor for CHD) > 60 mg/dL LDL CHOLESTEROL (CALCULATED) 128 MG/DL [facility] Adult Reference Ranges: Optimal LDL C holesterol < 100 mg/dL Near Optimal/above LDL Cholesterol 100 - 129 mg/dL Borderline High LDL Cholesterol 130 - 150 mg/dL High LDL Cholesterol 160 - 189 mg/dL Very High LDL Cholesterol >189 mg/dL ID Date Data Source [id number] 05/13/2020 12:00:00 AM EST CHARTMAKER ( [facility]) Name Value Range Interpretation Code Description Data Ene rce(s) Supporting Document(s) LDL CHOLESTEROL (CALCULATED) 128 mg/dL LDL CHOLESTEROL (CALCULATED): 128 mg/dL 05/13/2020 CH[facility]MAK[facility] ([facility]) ID Date Data Source [id number] 05/13/2020 12:00:00 AM EST CHARTMAKER ( [facility]) Name Value Range Interpretation Code Description Data Ene rce(s) Supporting Document(s) Cholesterol in HDL [Mass/volume] in Serum or Plasma 41 mg/dL HDL Cholesterol: 41 mg/dL 05/13/2020 CHARTMAKER ([place] [facility]) ID Date Data Source [id number] 05/13/2020 12:00:00 AM EST [facility]MAK[facility] ([facility]) Name Value Range Interpretation Code Description Data Ene rce(s) Supporting Document(s) Triglyceride [Mass/volume] in Serum or Plasma 184 mg/dL Triglycerides: 184 mg/dL 05/13/2020 CHARTMAKER ([facility]) ID Date Data Source [id number] 05/13/2020 12:00:00 AM EST [facility] Name Value Range Interpretation Code Description Data Ene rce(s) Supporting Document(s) Cholesterol in HDL [Mass/volume] in Serum or Plasma 206 mg/dL Cholesterol: 206 mg/dL 05/13/2020 CHARTMAKER ([facility]) Procedure Social History Code Duration Value Status Description Data Source(s ) Smoking 01/10/2021 12:00:00 AM EDT Never Smoker completed Never S moker eCW1 ([facility]) Smoking 01/10/2021 12:00:00 AM EDT Never Smoker completed Never S moker eCW1 ([facility]) Smoking 01/10/2021 12:00:00 AM EDT Never Smoker completed Never S moker eCW1 ([facility]) Smoking 01/10/2021 12:00:00 AM EDT Never Smoker completed Never S moker eCW1 ([facility]) Smoking 01/10/2021 12:00:00 AM EDT Never Smoker completed Never S moker eCW1 ([facility]) Smoking 10/02/2020 12:00:00 AM EDT Never Smoker completed Never S moker eCW1 ([facility]) Smoking 10/02/2020 12:00:00 AM EDT Never Smoker completed Never S moker eCW1 ([facility]) Smoking 10/02/2020 12:00:00 AM EDT Never Smoker completed Never S moker eCW1 ([facility]) Vital Signs ID Date Data Source UNK Name Value Range Interpretation Code Description Data Source(s) Systolic blood pressure 158 mm[Hg] 158 mm[Hg] M [facility] ([facility]) Body height 59.5 [in_i] 59.5 [in_i] [facility] ([facility]) 4'11.50" Body weight 135.00 [lb_av] 135.00 [lb_av] MEDEN T ([facility]) Body mass index (BMI) [Ratio] 26.8 kg/m2 26.8 k g/m2 [facility] ([facility]) [place] body weight 100 [lb_av] 100 [[facility]_av] [facility] Body weight 61.236 kg 61.236 kg [facility] ([facility]) Body surface area Derived from formula 1.57 m2 1.57 m2 [facility] ([facility]) Diastolic blood pressure 86 mm[Hg] 86 mm[Hg] [facility] ([facility]) Body temperature 98.3 [degF] 98.3 [degF] [facility] ([facility]) Body weight 135 [lb_av] 135 [lb_av] eCW1 ([facility]) Body height [in_i] eCW1 ([facility]) Body mass index (BMI) [Ratio] 26.58 kg/m2 26.58 kg/m2 W1 ([facility]) Heart rate 72 /min 72 /min eCW1 ([facility]) Respiratory rate 18 /min 18 /min eCW1 ([facility]) Body temperature 97.7 [degF] 97.7 [degF] eCW1 ( [facility]) Systolic blood pressure 144 mm[Hg] 144 mm[Hg] e CW1 ([facility]) Diastolic blood pressure 82 mm[Hg] 82 mm[Hg] eCW1 ([facility]) Body weight 131.4 [lb_av] 131.4 [lb_av] eCW1 ([facility] Body height [in_i] eCW1 ([facility]) Body mass index (BMI) [Ratio] 25.87 kg/m2 25.87 kg/m2 eCW1 ([facility]) Heart rate 83 /min 83 /min eCW1 ([facility]) Respiratory rate 18 /min 18 /min eCW1 ([facility]) Body temperature 97.6 [degF] 97.6 [degF] eCW1 ( [facility]) Systolic blood pressure 120 mm[Hg] 120 mm[Hg] e CW1 ([facility]) Diastolic blood pressure 82 mm[Hg] 82 mm[Hg] eCW1 ([facility])
--- OUTSIDE RECORDS SUMMARY | 2021-04-17 07:53 | CCD | Continuity of Care Document ---
Author Author Luis TRIANA Organization Unknown Address [address] [place] [address], [address] [place] [address] Phone [phone] Care Team Providers Care Client Support Coordinator Name Role Phone Mima Roth D.O. AUTM [phone] Problems Active Problems Provider Date Essential hypertension [...] lb BMI (Body Mass Index) 26.8 kg/m2 [place] Body Weight 100 lb Weight 61.236 kg BSA (Body Surface Area) 1.57 m2 Results Description No Information Available Procedures Date Code Description Status 01/23/2021 43913 Office/Outpatient New Low MDM 30 -44 Minutes Completed Medical Devices Description No Information Available Encounters Type Date Location Provider Dx Diagnosis Office Visit 01/23/2021 9:45a [facility] VERONIKA Chun Z86.010 Personal history of colonic polyps Z12.11 Encounter for screening for malignant neoplasm of colon Assessments Date Code Description Provider 01/23/2021 Z86.010 Personal history of colonic poly ps VERONIKA Gardner 01/23/2021 Z12.11 Encounter for screening for leanna gnant neoplasm of colon VERONIKA Gardner Plan of Treatment Future Appointment(s):* 03/20/2021 1:00 pm - VERONIKA Gardner at [facility] * 03/07/2021 10:00 am - Brandon Carmona M.D. at [facility] 01/23/2021 - VERONIKA Gardner* Z86.010 Personal history of colonic polyps * Z12.11 Encounter for screening for malignant neoplasm of colon Functional Status Description No Information Available Mental Status Description No Information Available Referrals Refer to Dr Reason for Referral Status Appt Date Brandon Carmona M.D. COLONOSCOPY Scheduled 01/23/2021 [facility] [address] [place] [address] [phone]
--- OUTSIDE RECORDS SUMMARY | 2021-04-17 07:53 | CCD ---
Author Author [facility] Organization [facility] Address Unknown Phone Unavailable Care Team Providers Care Communications Assistant Name Role Phone Mima Roth Unavailable PROBLEMS Type Condition ICD9-CM Code XUN28-ME Code Onset Dates Condition S tatus W/U Status Risk SNOMED Code Notes Problem Essential hypertension I10 Active confirmed 93439199 Problem Glaucoma, unspecified glaucoma type, unspecified lateralit y H40.9 Active confirmed 53669922 ALLERGIES Allergen (clinical drug ingredient) Drug/Non Drug Allergy do cumented on EMR Reaction Allergy Type Onset Date Status sulfamethoxazole / trimethoprim Bactrim([facility] Code:[address]-57) back pain Drug Allergy Active erythromycin Erythromycin(ND Code:[address]-58) Nausea/Vomiting D rug Allergy Active ENCOUNTERS from 1960 to 2021-01-27 Encounter Location Date Provider Diagnosis [address] [id number] [place] [address] Dec, 2020 Mima Roth Adenomatous polyp D36.9 ; Colon cancer s creening Z12.11 and Essential hypertension I10 IMMUNIZATIONS No Information SOCIAL HISTORY Tobacco Use: Social History Observation Description Date Details (start date - stop date) Never Smoker Sex Assigned At : Social History Observation Description Sex Assigned At Unknown Audit Question Answer Notes Total Score: 1 Interpretation: Alcohol Education Language: Question Answer Notes Languages spoken: Czech Domestic Violence: Question Answer Notes Status: Sexual [...] you a: never smoker REASON FOR REFERRAL from 1960 to 2021-01-27 Reason Patient requires repeat scre ening colonoscopy, had an adenomatous polyp on last colonoscopy. Please eval and treat. Diagnosis 1 Adenomatous polyp (D36.9) Referral Organization [facility] Referring Provider First Name Mima Referring Provider Last Name Gonzalez Referring Provider Specialty Family Medicine Referred Provider General Mathew MENDOZA (Haider chaudhry) Referred Provider Specialty General Surgery Referral Priority Routine General Notes Silvano Vera 01/13/2021 11:5 9:54 AM > Reshma Fairbanks 01/13/2021 4:02:02 PM > [place] auth#[id number], valid 01/07/21-01/07/22 for (1) office consult and (3) office/outpatient visits VITAL SIGNS Weight 135 lbs Dec, Height 4'11 3/4" in Dec, BMI 26.58 kg/m2 Dec, Heart Rate 72 /min Dec, Respiratory Rate 18 /min Dec, Temperature 97.7 degrees Fahrenheit Dec, Oximetry 100 Dec, Blood pressure systolic 144 mm Hg Dec, Blood pressure diastolic 82 mm Hg Dec, MEDICATIONS Medication SIG (Take, Route, Frequency, Duration) [...] Information RESULTS No Results REASON FOR VISIT 3 month MEDICAL (GENERAL) HISTORY Type Description Date Medical History essential hypertension Medical History glaucoma Medical History allergic rhinitis Medical History normal mammogram (10/2020) Surgical History tracheotomy for epiglottitis 1966 Surgical History 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 9 Surgical History tubal ligation 1994 Surgical History 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 Dec, Colon cancer screening (ICD-10 - Z12.11) Referred to gen surg for colonoscopy. Dec, Essential hypertension (ICD-10 - I10) Blood pressure is controlled in office today, and patient is tolerating antihypertensive medication. Will continue medication without change. Encouraged low sodium diet, regular exercise as tolerated. PLAN OF TREATMENT Medication Medication Name Sig Start Date Stop Date Lisinopril-hydroCHLOROthiazide 20-12.5 MG 1 tablet Ora lly Once a day for 90 days Treatment Notes Assessment Notes Clinical Notes Adenomatous polyp Referral sent. Colon cancer screening Referred to gen s urg for colonoscopy. Essential hypertension Blood pressure is controlled in office today, and patient is tolerating antihypertensive medication. Will continue medication without change. Encouraged low sodium diet, regular exercise as tolerated. Referrals Referral Date Details Patient requires repeat scre ening colonoscopy, had an adenomatous polyp on last colonoscopy. Please eval and treat., [facility] ([facility]) [facility] Next Appt Details 6 Months Reason:f/u Provider Name:Mima Roth, 2021-07-16 10:00:00 AM, [address], , [place], [address], Follow Up:6 Monthsf/u Insurance Providers Payer Name Payer Address Payer Phone Insured Name Patient Relati onship to Insured Coverage Start Date Coverage End Date [facility] [employer] [id number] [place] [id number] JAMIR ORDAZ self
[2021-04-17] MEDS ORDERED: propofoL 200 MG/20 ML VIAL As Ordered ONE ×2 (08:24→09:26)
[2021-04-17] MEDS ORDERED: LIDOCAINE 2% INJ 100 MG/5 ML SYRINGE As Ordered ONE ×2 (08:24→09:25)
--- NOTE | 2021-04-17 09:56 | ROOR ---
Patient Name: Lizbeth Escobar Procedure Date: 04/17/2021 9:29 AM Date of : 1960 Age: 60 Room: [facility] Gender: Female Note Status: Finalized Procedure: Colonoscopy Indications: High risk colon cancer surveillance: Personal history of colonic polyps, Last colonoscopy: 2012 Est Providers: Brandon Carmona MD Referring MD: Mima Roth DO Requesting Provider: Medicines: Monitored Anesthesia Care Complications: No immediate complications. Procedure: Pre-Anesthesia Assessment: - Prior to the procedure, a History and Physical was performed, and patient medications and allergies were reviewed. The patient is competent. The risks and benefits of the procedure and the sedation options and risks were discussed with the patient. All questions were answered and informed consent was obtained. Patient identification and proposed procedure were verified by the physician, the nurse and the matching machine operator in the procedure room. Mental Status Examination: alert and oriented. Airway Examination: normal oropharyngeal airway and neck mobility. Prophylactic Antibiotics: The patient does not require prophylactic antibiotics. Prior Anticoagulants: The patient has taken no previous anticoagulant or antiplatelet agents. ASA Grade Assessment: II - A patient with mild systemic disease. After reviewing the risks and benefits, the patient was deemed in satisfactory condition to undergo the procedure. The anesthesia plan was to use monitored anesthesia care (MAC). Immediately prior to administration of medications, the patient was re-assessed for adequacy to receive sedatives. The heart rate, respiratory rate, oxygen saturations, blood pressure, adequacy of pulmonary ventilation, and response to care were monitored throughout the procedure. The physical status of the patient was re-assessed after the procedure. The Colonoscope was introduced through the anus and advanced to the cecum, identified by appendiceal orifice and ileocecal valve. The colonoscopy was performed without difficulty. The patient tolerated the procedure well. The quality of the bowel preparation was good. Findings: The perianal and digital rectal examinations were normal. The colon (entire examined portion) appeared normal. Impression: - The entire examined colon is normal. - No specimens collected. Recommendation: - Discharge patient to home. - Resume previous diet. - Continue present medications. - Repeat colonoscopy in 5-10 years for surveillance. Procedure Code(s): --- Professional --- 26196, Colonoscopy, flexible; diagnostic, including collection of specimen(s) by brushing or washing, when performed (separate procedure) Diagnosis Code(s): --- Professional --- Z86.010, Personal history of colonic polyps CPT copyright 2019 [employer]. All rights reserved. The codes documented in this report are preliminary and upon clothing cutter review may be revised to meet current compliance requirements. Brandon Carmona MD Brandon Carmona MD 04/17/2021 9:56:06 AM Electronically signed by Brandon Carmona MD Number of Addenda: 0 Note Initiated On: 04/17/2021 9:29 AM Estimated Blood Loss: Estimated blood loss: none.
[2021-04-17 10:10] VITALS: BP 135/72
== END 2021-04-17 10:25 | disposition home or self-care (01) ==
LOC: M OPP 07:49
PROVIDERS: ATTEND Surgery
DX: Z12.11 Encounter for screening for malignant neoplasm of colon (principal); Z86.010 Personal history of colon polyps; Z79.899 Other long term (current) drug therapy; Z88.1 Allergy status to other antibiotic agents; Z88.2 Allergy status to sulfonamides; Z91.048 Other nonmedicinal substance allergy status